=== PATIENT | female | born 1975 | race Caucasian/White ===

== ENCOUNTER 2017-12-31 10:22 | Day surgery (SDC) | payer BC ==
[2017-12-30 12:35] VITALS: BMI 40.1
[2017-12-31] MEDS ORDERED: PROPOFOL 20 ML ONE ×2 (12:20)
[2017-12-31 13:06] VITALS: TEMP 97.8
[2017-12-31 13:31] VITALS: BP 128/86; PULSE 64
== END 2017-12-31 13:30 | disposition home or self-care (01) ==
LOC: JASU-ENDO 10:22
PROVIDERS: ATTEND Surgery
PROC: 0DJ08ZZ Inspection of Upper Intestinal Tract, Via Natural or Artificial Opening Endoscopic (ICD-10-PCS; principal; 2017-12-31 11:15)
DX: R63.5 Abnormal weight gain (principal); Z98.84 Bariatric surgery status
CPT/HCPCS: 84703